=== PATIENT | male | born 1980 | race Caucasian/White ===

== ENCOUNTER 2018-10-03 08:18 | Emergency (ER) | payer OTHER ==
--- NOTE | 2018-10-03 09:04 | EDPHY ---
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 Complaining of paresthesia to the index finger. No foreign body. No glass involvement. PRIMARY CARE PROVIDER: REVIEW OF SYSTEMS: 10 systems reviewed and are negative with exception of illness mentioned in the history of present illness PHYSICAL EXAM (Prior to examination, patient consented to physical exam, hands were washed and my usual and customary physical exam procedures followed) 1) GENERAL: Well-developed, well-nourished, alert and oriented. Appears to be in no acute distress. 2) HEAD: Normocephalic 3) HEENT: sclera anicteric 4) LUNGS: Breathing comfortably. 5) SKIN: Left hand palmar aspect overlying the 1st metacarpal, 3 cm linear laceration. 6) MUSCULOSKELETAL: Flexor function distally is intact 7) NEUROLOGIC: Decreased sensation and decreased 2 point discrimination to the index finger. Smoking Status: Current some day smoker Constitutional: Initial Vital Signs Temperature (C) 36.6 C 10/03/18 08:19 Heart Rate 66 10/03/18 08:19 Respiratory Rate 18 10/03/18 08:19 Blood Pressure 133/81 H 10/03/18 08:19 O2 Sat (%) 97 10/03/18 08:19 O2 Delivery Mode Room Air Allergies/Adverse Reactions: No Known Allergies Allergy (Unverified 12/03/15 12:51) Home Medications: Medication Instructions Recorded Cephalexin [Keflex] 500 mg PO TID 7 Days cap 10/03/18 MDM/Departure - MDM Procedures: Procedure: Laceration repair. I explained the indications, risks and benefits for both laceration repair and anesthetic administration. Verbal consent was obtained from the patient. The laceration on the left hand was anesthetized using 0.5% bupivicaine with epinephrine. After anesthetic administered the patient was observed for a period of time and had no apparent adverse effects. The wound was cleaned, prepped, draped in normal sterile fashion and explored to its base. No foreign body seen, no foreign bodies palpated. There were no deep structures involved. No definitive tendon injury was identified. The wound was repaired with 8 simple interrupted 5 O Prolene sutures. The wound repair was complex. The procedure was performed by myself. Patient has been informed that scarring will occur, although efforts have been made to minimize this. Procedure: Splint A Velcro thumb spica splint was applied by ER crime scene evidence technician in order to reduce stress on this area. After application of the splint I returned and re- examined the patient. The splint was adequately immobilizing the joint and distal to the splint the patient's circulation and sensation were intact. Patient shows no signs of compartment syndrome. Was given orthopedic precautions. ED Course/Re-evaluation: Re-evaluation with serial exams. Although no definitive tendon injury has been identified exam, patient has been informed that this cannot be fully ruled out. I recommend follow up with Hand surgery. He is started on prophylactic antibiotics, placed in a splint to minimize stress on the laceration site. He verbalized understanding of his discharge instructions and feels comfortable being discharged. Patient feels comfortable being discharged. All questions and concerns addressed by myself. Patient given my usual and customary discharge precautions and instructions regarding their clinical impression. Care of patient under supervision of secondary supervising physician Dr Lafleur . - Depart Disposition: Home, Routine, Self-Care Clinical Impression: Laceration of left hand Qualifiers: Encounter type: initial encounter Foreign body presence: without foreign body Qualified Code(s): S61.412A - Laceration without foreign body of left hand, initial encounter Condition: Good Instructions: Care For Your Stitches (ED), Laceration (ED) Additional Instructions: Return to the ER if you develop redness, swelling, discharge, warmth to the wound, red streaks going up your arm, or any other symptoms that concern you. Your stitches need to be removed in 10 days. I recommend you see a hand surgeon before then. Prescriptions: Cephalexin [Keflex] 500 mg PO TID 7 Days cap Referrals: Berlin Richardson MD [Medical Doctor] - 2-3 days, call for appt.
[2018-10-03 10:05] VITALS: BP 128/78
== END 2018-10-03 10:02 | disposition home or self-care (01) ==
PROC: 0HQGXZZ Repair Left Hand Skin, External Approach (ICD-10-PCS; principal; 2018-10-03)
DX: S61.412A Laceration without foreign body of left hand, initial encounter (principal); W26.8XXA Contact with other sharp object(s), not elsewhere classified, initial encounter
CPT/HCPCS: L3807